=== PATIENT | female | born 1970 | race Caucasian/White ===

== ENCOUNTER → 2020-03-30 | Day surgery (SDC) | payer OTHER ==
[~2020-03-30] MED LIST: Ketamine 200 MG/20 ML MDV IV ONE; Lactated Ringers 1,000 ML IV SCH; Lidocaine 1% 20 ML MDV ONE; Midazolam 1 MG/ML 2 ML SDV IV ONE; Propofol 200 MG/20 ML SDV IV ONE; Sodium Chloride 0.9% 1,000 ML ONE; ceFAZolin 1 GM Vial IVPUSH STA; fentaNYL 100 MCG/2 ML SDV IV ONE
--- NOTE | 2020-03-30 13:09 | OR ---
DATE OF OPERATION: 03/30/2020 PREOPERATIVE DIAGNOSIS: BILIARY COLIC. POSTOPERATIVE DIAGNOSIS: BILIARY COLIC. SURGEON: Jovon Damon MD PROCEDURE: LAPAROSCOPIC CHOLECYSTECTOMY. ANESTHESIA: General. ESTIMATED BLOOD LOSS: Minimum. SPECIMEN: Gallbladder. FINDINGS: Multiple adhesions around the gallbladder. No stones were found. INDICATIONS: This 49-year-old female has significant right upper quadrant abdominal pain. It is almost always postprandial within an hour or two after eating. She had an ultrasound that shows no stones, and a HIDA, ejection fraction of 35%. DESCRIPTION OF PROCEDURE: After adequate preparation, trocars were placed intra- abdominally for insufflation. Examination of the abdomen is normal. She did have multiple adhesions of the omentum around the gallbladder, possibly indicating a prior chronic infection. The gallbladder wall was not thickened. The liver appeared to be normal. The cystic triangle structures were dissected free, triply clipped, and divided, and the gallbladder was taken off the liver bed using cautery dissection. There was a small opening in the fundus portion of the gallbladder at the end with minimal bile spillage. The gallbladder was then placed within a retrieval bag and brought out through the epigastric trocar site. The right upper quadrant was irrigated and suctioned clear. There were adhesions along the body wall near the liver margin. These were taken down by sharp dissection to completely free up her right upper quadrant. No other intraabdominal abnormalities were noted. Stomach, spleen, and intestines are normal. I did see the appendix and that is also normal. Air was suctioned from the abdominal cavity. The trocars were removed, and the skin closed with Vicryl. 1% xylocaine was used to infiltrate the skin. BPB/MODL /[id number]
[2020-03-30 15:56] VITALS: BP 112/60; PULSE 69
== END ==
LOC: CC.SDS 09:48
PROVIDERS: ATTEND Surgery
DX: K80.44 Calculus of bile duct with chronic cholecystitis without obstruction (principal); Z11.59 Encounter for screening for other viral diseases; E03.9 Hypothyroidism, unspecified; E78.5 Hyperlipidemia, unspecified; E66.01 Morbid (severe) obesity due to excess calories; I10 Essential (primary) hypertension; F17.210 Nicotine dependence, cigarettes, uncomplicated; Z88.0 Allergy status to penicillin; Z88.5 Allergy status to narcotic agent; Z88.8 Allergy status to other drugs, medicaments and biological substances; Z79.890 Hormone replacement therapy; Z68.33 Body mass index [BMI] 33.0-33.9, adult
CPT/HCPCS: 00790; J0690; J2250; J2704; J3010; J7120; U0002